=== PATIENT | male | born 1945 | race Two or more races ===

== ENCOUNTER 2020-05-27 09:30 | Inpatient (IN) | payer OTHER ==
[~2020-05-27] VITALS: Ht 175.3 cm; Wt 72.6 kg
[2020-06-04] MEDS ORDERED: CABERGOLINE0.5 MG (08:27)
[2020-06-04] MEDS ORDERED: ATORVASTATIN CA40 MG (08:28)
[2020-06-04] MEDS ORDERED: VITAMIN D3125 MC1 (08:28)
[2020-06-04] MEDS ORDERED: SILDENAFIL CIT100 MG (08:28)
[2020-06-06] MEDS ORDERED: ULTRACET PO (10:26)
[2020-06-06] MEDS ORDERED: INTESTINEX680 M1 PO (10:26)
[2020-06-06] MEDS ORDERED: PROTONIX40 MG PO (10:26)
== END 2020-06-06 10:48 | disposition home or self-care (01) | DRG 331 ==
LOC: SURH 10:45 → O/R 06-03 08:41 → SURH 06-03 10:45
PROVIDERS: ADMIT Surgery; ATTEND Surgery
PROC: 0DBN4ZZ Excision of Sigmoid Colon, Percutaneous Endoscopic Approach (ICD-10-PCS; 2020-06-03)
PROC: 0DJD8ZZ Inspection of Lower Intestinal Tract, Via Natural or Artificial Opening Endoscopic (ICD-10-PCS; 2020-06-03)
PROC: 0DTP4ZZ Resection of Rectum, Percutaneous Endoscopic Approach (ICD-10-PCS; principal; 2020-06-03 07:00)
DX: C19 Malignant neoplasm of rectosigmoid junction (principal); E78.00 Pure hypercholesterolemia, unspecified; I10 Essential (primary) hypertension; Z20.828 Contact with and (suspected) exposure to other viral communicable diseases